=== PATIENT | female | born 1995 | race African-American/Black ===

== ENCOUNTER 2022-06-01 13:27 | Emergency (ER) | payer MEDICAID ==
[~2022-06-01] VITALS: Ht 172.7 cm; Wt 59.0 kg
[2022-06-01 13:30] VITALS: BP 113/69
[2022-06-01] MEDS ORDERED: OLANZAPINE 10MG TABLET PO STA (16:07)
[2022-06-01 16:33] LABS: BASOPHILS % 0.2 % (0.0-2.0); EOSINOPHILS % 0.6 % (0.0-5.0); HEMATOCRIT. 42.3 % (36.0-48.0); HEMOGLOBIN. 14.4 g/dL (12.0-16.0); LYMPHOCYTES % 32.4 % (20.0-50.0); MEAN CORPUSCULAR HEMOGLOBIN 27.9 pg (28.0-32.0); MONOCYTES % 8.5 % (2.0-8.0); NEUTROPHILS % 58.3 % (40.0-76.0); PLATELET 198 x1000/uL (130-400); RED BLOOD CELL COUNT 5.16 mill/uL (4.2-5.4); RED CELL DISTRIBUTION WIDTH 13.9 % (11.6-14.6)
[2022-06-01 16:43] LABS: CHLORIDE 108 mEq/L (98-107)
[2022-06-01 16:46] LABS: HCG SCREEN NEGATIVE
[2022-06-01] MEDS ORDERED: OLAN10TA3 MT (16:59)
== END 2022-06-01 17:26 | disposition home or self-care (01) ==
LOC: ER 13:45
DX: F20.9 Schizophrenia, unspecified (principal); Z76.0 Encounter for issue of repeat prescription
CPT/HCPCS: 36415; 80053; 84703; 85025; 99283

== ENCOUNTER 2024-04-11 12:36 | Emergency (ER) | payer MEDICAID ==
[~2024-04-11] VITALS: Ht 167.6 cm; Wt 60.0 kg
[~2024-04-11 12:36] MED LIST: OLAN10TA3 MT
[2024-04-11 12:42] VITALS: BP 106/77; PULSE 90; RESP 18; TEMP 36.8; O2SAT 99
[2024-04-11] MEDS ORDERED: D-ME473S50 PO (15:48)
== END 2024-04-11 17:10 | disposition home or self-care (01) ==
LOC: ER 12:41
DX: J06.9 Acute upper respiratory infection, unspecified (principal); F41.9 Anxiety disorder, unspecified; Z86.59 Personal history of other mental and behavioral disorders
CPT/HCPCS: 99283